=== PATIENT | female | born 1995 | race Caucasian/White ===

== ENCOUNTER → 2024-04-18 12:47 | Outpatient (REF) | payer BC, SELFPAY | LOC: RCS 12:47 | PROVIDERS: ATTENDING PHYSICIAN Internal Medicine Cardiovascular Disease; FAMILY PHYSICIAN Family Medicine | DX: R94.31 Abnormal electrocardiogram [ECG] [EKG] (principal); Z82.49 Family history of ischemic heart disease and other diseases of the circulatory system | CPT/HCPCS: 93306 ==

== ENCOUNTER → 2024-05-16 10:45 | Outpatient (REF) | payer BC, SELFPAY | LOC: RCS 10:45 | PROVIDERS: ATTENDING PHYSICIAN Internal Medicine Cardiovascular Disease; FAMILY PHYSICIAN Family Medicine | DX: R07.89 Other chest pain (principal) | CPT/HCPCS: 93017 ==